=== PATIENT | female | born 2000 | race Caucasian/White ===

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

== ENCOUNTER 2022-06-06 10:01 | Emergency (ER) | payer OTHER, SELFPAY ==
--- NOTE | ~2022-06-06 | CT_ITS ---
EXAMINATION: CT brain wo con DATE: 06/06/2022 12:42 INDICATION: Head injury. TECHNIQUE: Computed tomography (CT) of the head was performed without intravenous contrast. The mA wa s adjusted according to patient size. Iterative reconstruction technique was employed. The dose-lengt h product was 605.33 mGy-cm. COMPARISON: Head CT 07/19/2021 FINDINGS: There is no intracranial hemorrhage, acute infarction, or abnormal intracranial mass lesion . The ventricles are normal in size. The paranasal sinuses are clear. The orbits are normal. The mast oid air cells are normal. IMPRESSION: 1. Normal brain. Reviewed, dictated and finalized at location A. IMPRESSION: 1. Normal brain.
--- NOTE | ~2022-06-06 | XR_ITS ---
XR shoulder LT min 2V DATE: 06/06/2022 12:55 INDICATION: Fall. Left shoulder injury, pain TECHNIQUE: 4 views COMPARISON: None FINDINGS: Normal alignment at the acromioclavicular and glenohumeral joints. No fracture or dislocati on, periosteal reaction or bone destruction or abnormal soft tissue calcification. IMPRESSION: Negative Reviewed, dictated and finalized at location B. IMPRESSION: Negative
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
[2022-06-06 10:06] VITALS: BP 117/83; PULSE 86; RESP 18; TEMP 36.2; O2SAT 100
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
[2022-06-06] MEDS: IBUPROFEN 600 MG TABLET PO (13:01)
== END 2022-06-06 13:25 | disposition home or self-care (01) ==
PROVIDERS: Emergency Provider Emergency Medicine; PCP Nurse Practitioner Family
DX: S00.93XA Contusion of unspecified part of head, initial encounter (principal); S40.012A Contusion of left shoulder, initial encounter; S16.1XXA Strain of muscle, fascia and tendon at neck level, initial encounter; V86.59XA Driver of other special all-terrain or other off-road motor vehicle injured in nontraffic accident, initial encounter
CPT/HCPCS: 70450; 72125; 73030; 99284; A9270

== ENCOUNTER 2022-11-28 13:17 | Emergency (ER) | payer OTHER, SELFPAY ==
[2022-11-28 13:30] VITALS: BP 108/75; PULSE 86; RESP 16; TEMP 36.6; O2SAT 100
--- NOTE | 2022-11-28 13:37 | ED.GENADULT ---
HPI - General Adult General Chief complaint: Abdominal Pain Stated complaint: Heartburn Time Seen by Provider: 11/28/22 13:37 Source: patient Mode of arrival: ambulatory Limitations: no limitations History of Present Illness HPI narrative: 22-year-old female presents with complaint of burning to chest for the past 2 days. Reports some nausea, abdominal cramping. Today she felt tired upon school. Patient reports that her period is supposed to start today or tomorrow. Is on oral control. States it is possible that she could be . Patient tried Tums with no relief of Chest burning. All systems reviewed and negative except as noted above. Related Data Home Medications Medication Instructions Recorded Confirmed norethindrone 1 mg-ethinyl 1 tablet DAILY 04/08/21 11/28/22 estradiol 20 mcg (21)-iron 75 mg (7) tablet (Blisovi Fe 04/01 (28)) Allergies Allergy/AdvReac Type Severity Reaction Status Date / Time No Known Allergies Allergy Verified 11/28/22 13:21 Review of Systems Review of Systems: CONSTITUTIONAL: Denies fever, chills, or sweats. EYES: Denies visual changes, redness, or discharge. ENT: Denies rhinorrhea, congestion, sore throat, or otalgia. CARDIOVASCULAR: Denies chest pain, palpitations, or edema. RESPIRATORY: Denies cough or dyspnea. GASTROINTESTINAL: Reports mild abdominal cramping, burning indigestion, nausea. Denies vomiting, or diarrhea. GENITOURINARY: Denies dysuria or hematuria. SKIN: Denies rash or itching. MUSCULOSKELETAL: Denies back pain, joint pain, or myalgia. NEUROLOGIC: Denies headache, numbness, or weakness. PSYCHIATRIC: Denies anxiety or depression. All other systems reviewed are negative, except as documented in HPI. PMFSH Past Medical History Medical History (Updated 11/28/22 @ 13:53 by Alissa Roque NP) Patient denies significant medical history Social History Social History (Updated 06/06/22 @ 12:37 by Ghassan Whitehead DO) Smoking status: Never smoker Gender identity (if verbalized by the patient): Female Comments At time of signature, agree with nursing past medical, surgical, social and family history. There is no relevant family history pertinent to the presenting complaint. Exam Narrative: GENERAL: This is a well-nourished, well-developed patient, in no apparent distress. HEAD: normocephalic, atraumatic. EYES: PERRL. Sclera clear/white. Vision is grossly intact. EARS: External ears normal NOSE: External nose normal NECK: Neck supple, non-tender without lymphadenopathy, masses or thyromegaly. CARDIOVASCULAR: Regular rate and rhythm without murmurs, gallops, or rubs. RESPIRATORY: Clear to auscultation. Breath sounds equal bilaterally. No wheezes, rales, or rhonchi. GASTROINTESTINAL: Abdomen soft, non-tender, nondistended. Bowel sounds are active. No hepato-splenomegaly, or palpable masses. No guarding. SKIN: warm, Dry, intact with no suspicious lesions or rash, good texture and turgor. NEURO: awake, alert, and oriented to person, place and time. There were no obvious focal neurologic abnormalities. EXTREMITIES: No joint tenderness, effusion, or edema noted. Course Course Level of Care: [facility] Visit Vital Signs Vital signs: Vital Signs Temperature 36.6 C 11/28/22 13:30 Pulse Rate 86 11/28/22 13:30 Respiratory Rate 16 11/28/22 13:30 Blood Pressure 108/75 11/28/22 13:30 Pulse Oximetry 100 11/28/22 13:30 Oxygen Delivery Room Air 11/28/22 13:30 Temperature 36.6 C 11/28/22 13:30 Pulse Rate 86 11/28/22 13:30 Respiratory Rate 16 11/28/22 13:30 Blood Pressure 108/75 11/28/22 13:30 Pulse Oximetry 100 11/28/22 13:30 Oxygen Delivery Room Air 11/28/22 13:30 reviewed Medical Decision Making MDM Narrative Medical decision making narrative: negative urine test. No abdominal tenderness on exam. Patient offered GI cocktail at [facility] but she did not wa
== END 2022-11-28 13:55 | disposition home or self-care (01) ==
PROVIDERS: Emergency Provider Nurse Practitioner Family; PCP Nurse Practitioner Family
DX: K30 Functional dyspepsia (principal)
CPT/HCPCS: 81025; 99213; G0463

== ENCOUNTER 2024-01-07 17:12 | Emergency (ER) | payer SELFPAY ==
[2024-01-07 17:18] VITALS: BP 128/92; PULSE 110; RESP 18; TEMP 36.6; O2SAT 100
[2024-01-07 17:25] VITALS: BP 109/64; PULSE 70; RESP 16; TEMP 36.6; O2SAT 100
--- NOTE | 2024-01-07 18:18 | ED.GENADULT ---
HPI - General Adult General Chief complaint: Wound/Laceration Stated complaint: right 1st finger lac Time Seen by Provider: 01/07/24 17:35 History of Present Illness HPI narrative: Patient is a 23-year-old female who presents ER with laceration to the 2nd digit. Right index finger. She dropped a knife and lacerated the proximal phalanx on the radial aspect. Neurovascularly intact. Unknown last tetanus. Related Data Home Medications Medication Instructions Recorded Confirmed norethindrone 1 mg-ethinyl 1 tablet DAILY 04/08/21 11/28/22 estradiol 20 mcg (21)-iron 75 mg (7) tablet (Blisovi Fe 04/01 (28)) Allergies Allergy/AdvReac Type Severity Reaction Status Date / Time No Known Allergies Allergy Verified 01/07/24 17:13 Review of Systems Constitutional: Constitutional: Reports no additional constitutional complaints Musculoskeletal: Musculoskeletal: Denies arthralgias and Denies joint swelling Integumentary/Breasts: Skin/Breast: Denies pruritus, Denies erythema and Denies rash Comments: +lac Neurologic: Denies focal weakness and Denies numbness PMFSH Past Medical History Medical History (Updated 01/07/24 @ 18:20 by Marquis Decker MD) Patient denies significant medical history Social History Social History (Updated 06/06/22 @ 12:37 by Ghassan Whitehead, DO) Smoking status: Never smoker Gender identity (if verbalized by the patient): Female Exam Narrative: GENERAL: Well-appearing, well-nourished, and in no acute distress. HEAD: Normocephalic, atraumatic. EXTREMITIES: Rt 2d digit with FROM and NV intact. SKIN: Warm, dry. 2.5 cm v shaped laceration to the proximal phalanx rt 2nd digit radial aspect. NEURO: No focal deficits. Alert and oriented x3. PSYCH: Normal mood and affect. Course Course Emergency Course: wound repaired, tetanus updated. Vital Signs Vital signs: Vital Signs Temperature 97.8 F 01/07/24 17:18 Pulse Rate 110 H 01/07/24 17:18 Respiratory Rate 18 01/07/24 17:18 Blood Pressure 128/92 H 01/07/24 17:18 Pulse Oximetry 100 01/07/24 17:18 Oxygen Delivery Room Air 01/07/24 17:18 Temperature 97.9 F 01/07/24 17:25 Pulse Rate 70 01/07/24 17:25 Respiratory Rate 16 01/07/24 17:25 Blood Pressure 109/64 01/07/24 17:25 Pulse Oximetry 100 01/07/24 17:25 Oxygen Delivery Room Air 01/07/24 17:25 Procedures Laceration Laceration 1: Date: 01/07/24 Time: 18:15 Site: other (right 2nd digit) Size (cm): 2.5 Description: linear Depth: simple, single layer Local Anesthetic: lidocaine 1% and with epi Amount of anesthesia used (mL): 2 Pre-repair: irrigated extensively (soap and water) ====== Skin Level ====== Skin layer closed with: nylon Size (cm): 4-0 Number of sutures: 5 Technique: simple, interrupted ====== Subcutaneous Layer ====== ====== Muscle Layer ====== ====== Tendon Layer ====== Medical Decision Making Vital Signs Vital Signs: Vital Signs Temperature 97.8 F 01/07/24 17:18 Pulse Rate 110 H 01/07/24 17:18 Respiratory Rate 18 01/07/24 17:18 Blood Pressure 128/92 H 01/07/24 17:18 Pulse Oximetry 100 01/07/24 17:18 Oxygen Delivery Room Air 01/07/24 17:18 Temperature 97.9 F 01/07/24 17:25 Pulse Rate 70 01/07/24 17:25 Respiratory Rate 16 01/07/24 17:25 Blood Pressure 109/64 01/07/24 17:25 Pulse Oximetry 100 01/07/24 17:25 Oxygen Delivery Room Air 01/07/24 17:25 Discharge Plan Discharge Clinical Impression: Finger laceration Patient Disposition: Home, Self-Care Condition: Stable Instructions: Care For Your Stitches (ED) Additional Instructions: Remove your sutures in 14 days. Return the ER if your draining pus from the wound, your fingers red and hot, or you have additional concerns. Prescriptions: No Action norethindrone-e.estradiol-iron [Blisovi Fe 04/01 (28)] 1 mg-20 mcg (21)/75 mg (7) tablet 1 tablet DAILY famotidine [Pepcid] 20 mg tablet 20 mg PO DAILY 30 Days Qty: 30 0RF Follow-up/Referrals: Marley,Stacy Fulton APRN [Primary Care Provider] - 2 Weeks
[2024-01-07] MEDS: TETANUS,DIPHTHERIA,AC PERTUSSIS ADULT (0.5 ML) BOOSTRIX IM (18:40)
== END 2024-01-07 18:48 | disposition home or self-care (01) ==
PROVIDERS: Emergency Provider Emergency Medicine; PCP Nurse Practitioner
DX: S61.210A Laceration without foreign body of right index finger without damage to nail, initial encounter (principal); W26.0XXA Contact with knife, initial encounter; Z23 Encounter for immunization
CPT/HCPCS: 12001; 90471; 90715; 99282

== ENCOUNTER 2024-02-20 15:54 | Emergency (ER) | payer OTHER, SELFPAY ==
--- NOTE | 2024-02-20 16:07 | ED_ITS ---
HPI - URI/Sore Throat General Chief Complaint: Upper Respiratory Infection Stated Complaint: headache Time Seen by Provider: 02/20/24 16:30 Source: patient and RN notes reviewed Mode of arrival: ambulatory Limitations: no limitations History of Present Illness HPI Narrative: 23-year-old female presents with concern for headache, runny nose, stuffy nose for about 5 days. She reports she has tried typical remedies for her migraines and none of them helped. She denies fever, body aches, chills, sweats. Denies tender clock headache. Denies weakness in any extremity. Denies vision change MD elicited complaint: rhinorrhea and nasal congestion Related Data Home Medications ?Medication ?Instructions ?Recorded ?Confirmed ?Last Taken ?Type norethindrone 1 mg-ethinyl 1 tablet DAILY 04/08/21 11/28/22 Unknown History estradiol 20 mcg (21)-iron 75 mg (7) tablet (Blisovi Fe 04/01 (28)) Allergies Allergy/AdvReac Type Severity Reaction Status Date / Time No Known Allergies Allergy Verified 02/20/24 16:09 Review of Systems Review of Systems: CONSTITUTIONAL: Denies malaise, chills, sweats, or fever. EYES: Denies visual changes, redness, or discharge. ENT: Reports rhinorrhea, congestion, sinus pain. Denies otalgia and sore throat. CARDIOVASCULAR: Denies chest pain, palpitations, or edema. RESPIRATORY: Denies cough. Denies dyspnea. GASTROINTESTINAL: Denies abdominal pain, nausea, vomiting, diarrhea SKIN: Denies rash or itching. MUSCULOSKELETAL: Denies myalgia. NEUROLOGIC: Reports headache. All systems reviewed & are unremarkable except as noted in HPI and below PMFSH Past Medical History Medical History (Updated 02/20/24 @ 16:43 by Aimee Beckford NP) Patient denies significant medical history Social History Social History (Updated 06/06/22 @ 12:37 by Ghsasan Whitehead, DO) Smoking status: Never smoker Gender identity (if verbalized by the patient): Female Comments At time of signature, agree with nursing past medical, surgical, social and family history. There is no relevant family history pertinent to the presenting complaint Exam Narrative: GENERAL: Well-appearing, well-nourished, and in no acute distress. HEAD: Normocephalic EYES: PERRLA, conjunctivae clear ENT: Nares clear, turbinates edematous and erythematous, clear discharge. Mucous membranes moist. TM pearly gan with dull light reflex bilaterally; no tragal tenderness. Oropharynx not erythematous without lesions. Tonsils not enlarged and without exudate, no drooling, no hoarseness, no trismus, uvula midline. NECK: Supple. No lymphadenopathy CHEST: Clear to auscultation, breath sounds equal. No wheezing, rhonchi, rales, or stridor. No respiratory distress, speaks in full sentences. HEART: Regular rate and rhythm. No murmur heard. SKIN: Warm, dry, no rash. NEURO: Alert and oriented x3. PSYCH: Normal mood and affect Course Course Emergency Course: Patient is aware of diagnosis, understands and agrees to treatment plan. Anticipatory guidance given. Patient agrees to follow-up as directed and is aware of reasons to seek care at the emergency department. Portions of this record may have been created with voice recognition software Level of Care: Express Care Visit Vital Signs Vital signs: Vital Signs Temperature 98.4 F 02/20/24 16:13 Pulse Rate 71 02/20/24 16:13 Respiratory Rate 17 02/20/24 16:13 Blood Pressure 104/62 02/20/24 16:13 Pulse Oximetry 100 02/20/24 16:13 Oxygen Delivery Room Air 02/20/24 16:13 Temperature 98.4 F 02/20/24 16:13 Pulse Rate 71 02/20/24 16:13 Respiratory Rate 17 02/20/24 16:13 Blood Pressure 104/62 02/20/24 16:13 Pulse Oximetry 100 02/20/24 16:13 Oxygen Delivery Room Air 02/20/24 16:13 Reviewed. MDM - URI/Sore Throat MDM Narrative Medical decision making narrative: Differential diagnosis considered: Mckeon virus, strep pharyngitis, allergic rhinitis, upper respiratory tract infection, sinusitis, rhinosinusitis, nasopharyngitis. viral pharyngitis, otitis media, otitis externa, pneumonia, bronchitis, viral cough syndrome, viral syndrome, and influenza. Exam findings show no acute concerns or changes; patient is non-toxic appearing and is in no distress. Patient is appropriate for outpatient treatment and follow-up. Lab Data Attestation: I reviewed the patient's lab results. Labs: Lab Results 12/10/24 Range/Units 16:38 POC SARS CoV-2 Ag Pending Critical Care Time Critical Care Time Critical Care Time: No Discharge Plan Discharge Clinical Impression: Upper respiratory infection Qualifiers: URI type: unspecified URI Qualified Code(s): J06.9 - Acute upper respiratory infection, unspecified Patient Disposition: Home, Self-Care Condition: Stable Instructions: Upper Respiratory Infection (ED) Additional Instructions: Viral illness may last between 7-21 days; antibiotics do not cure viral illness and are NOT recommended at this time. Recommend antihistamine such as Benadryl at night time and Zyrtec or Aarti during the day Also, recommend symptomatic treatment includes: rest, fluids, and increase humidity of the air at home. Recommend Acetaminophen as directed on the bottle to reduce fever, pain, headache. Avoid smoking/second-hand smoke. Please schedule a follow-up visit with your personal physician for further evaluation and treatment within 3-5days. Including recheck and discussion of your blood pressure. If your symptoms persist, change or worsen significantly before you can contact your personal physician then please, without delay, go to the emergency department for further evaluation. Patient Language: Greenlandic Prescriptions: New pseudoephedrine HCl [12 Hour Decongestant] 120 mg tablet extended release 120 mg PO Q12H PRN (Reason: nasal congestion) Qty: 20 0RF No Action norethindrone-e.estradiol-iron [Blisovi Fe 04/01 (28)] 1 mg-20 mcg (21)/75 mg (7) tablet 1 tablet DAILY famotidine [Pepcid] 20 mg tablet 20 mg PO DAILY 30 Days Qty: 30 0RF Follow-up/Referrals: PHYSICIAN,SAFETY PATROL OFFICER [Primary Care Provider] - Stand Alone Forms: Work/School Release IP Time of Disposition: 16:44
[2024-02-20 16:13] VITALS: BP 104/62; PULSE 71; RESP 17; TEMP 36.9; O2SAT 100
[2024-02-21 07:32] LABS: EDCOVIDSCREEN Negative (Negative)
== END 2024-02-20 16:47 | disposition home or self-care (01) ==
PROVIDERS: Emergency Provider Nurse Practitioner
DX: J06.9 Acute upper respiratory infection, unspecified (principal); Z20.822 Contact with and (suspected) exposure to COVID-19
CPT/HCPCS: 87426; 99213; G0463